=== PATIENT | female | born 1965 | race Caucasian/White ===

== ENCOUNTER 2017-10-23 18:34 | Emergency (ER) | payer OTHER ==
[~2017-10-23] VITALS: Ht 160 cm; Wt 91.6 kg
[2017-10-23 18:36] VITALS: Ht 160 cm; Wt 91.6 kg
[2017-10-23 20:36] VITALS: BP 114/65
== END 2017-10-23 20:36 | disposition home or self-care (01) ==
LOC: ED 18:34
DX: B35.4 Tinea corporis (principal); B37.3 Candidiasis of vulva and vagina; N39.0 Urinary tract infection, site not specified; E78.00 Pure hypercholesterolemia, unspecified; Z88.5 Allergy status to narcotic agent; Z91.013 Allergy to seafood

== ENCOUNTER 2020-02-20 17:11 | Emergency (ER) | payer OTHER ==
[~2020-02-20] VITALS: Ht 160 cm; Wt 91.2 kg
[2020-02-20 17:35] VITALS: BP 148/82; Ht 160 cm; Wt 91.2 kg
[2020-02-20 18:46] LABS: BASOPHIL % 0.6 % (0.2-1.3); PLATELET COUNT 234 x10^3mcL (179-408); RED CELL DISTRIBUTION WIDTH 12.8 % (12.3-17.7)
[2020-02-20 18:58] LABS: CALCIUM 9.2 mg/dL (8.5-10.1); CARBON DIOXIDE 28.4 mmol/L (21-32); CHLORIDE SERUM 101 mmol/L (98-107); CREATININE SERUM 0.9 mg/dL (0.6-1.0); GFR1 > 60 mL/min; GLUCOSE SERUM 123 mg/dL (74-106); POTASSIUM SERUM 3.8 mmol/L (3.5-5.1); SODIUM SERUM 139 mmol/L (136-145)
[2020-02-20 19:16] LABS: ALBUMIN 4.4 g/dL (3.4-5.0); ALKALINE PHOSPHATASE 92 U/L (46-116); ALT/SGPT 37 U/L (14-59); AST/SGOT 17 U/L (15-37); BILIRUBIN TOTAL 0.53 mg/dL (0.20-1.00)
[2020-02-20 19:17] LABS: TOTAL PROTEIN, SERUM 8.3 g/dL (6.4-8.2)
== END 2020-02-20 19:43 | disposition home or self-care (01) ==
LOC: ED 17:11
PROVIDERS: Emergency Medicine
DX: R31.9 Hematuria, unspecified (principal); R09.89 Other specified symptoms and signs involving the circulatory and respiratory systems; E78.00 Pure hypercholesterolemia, unspecified; G47.00 Insomnia, unspecified; Z91.013 Allergy to seafood